=== PATIENT | female | born 1965 | race Hispanic/Latino ===

== ENCOUNTER → 2017-02-13 | Emergency (ER) | payer OTHER ==
[~2017-02-13] VITALS: Ht 154.9 cm; Wt 63.5 kg
[~2017-02-13] MED LIST: ANAPROX DS550 MG PO; FLEXERIL10 MG PO; GLIPIZIDE XL5 MG PO; JANUVIA25 MG; LISINOPRIL10 MG PO; LYRICA75 MG PO; METFORMIN HCL500 MG PO; RANITIDINE HCL150 MG PO; ROBAXIN-750750 MG PO
== END | disposition home or self-care (01) ==
LOC: ED 21:20
DX: S39.012A Strain of muscle, fascia and tendon of lower back, initial encounter (principal); E11.9 Type 2 diabetes mellitus without complications; Z90.49 Acquired absence of other specified parts of digestive tract; Z88.5 Allergy status to narcotic agent; Z79.84 Long term (current) use of oral hypoglycemic drugs; X58.XXXA Exposure to other specified factors, initial encounter
CPT/HCPCS: 80053; 81001; 85025; 96361; 96374; 99283; J2405; J7030

== ENCOUNTER 2017-04-01 16:09 | Emergency (ER) | payer OTHER ==
[~2017-04-01] VITALS: Ht 154.9 cm; Wt 63.5 kg
[~2017-04-01 16:09] MED LIST changes: -JANUVIA25 MG
[2017-04-01] MEDS ORDERED: JANUVIA25 MG (17:42)
== END 2017-04-01 21:26 | disposition home or self-care (01) ==
LOC: ED 16:09
DX: E11.65 Type 2 diabetes mellitus with hyperglycemia (principal); Z88.5 Allergy status to narcotic agent; Z79.84 Long term (current) use of oral hypoglycemic drugs
CPT/HCPCS: 71046; 80053; 81001; 84484; 85025; 96360; 99283; J7030

== ENCOUNTER 2017-08-25 21:11 | Emergency (ER) | payer OTHER ==
[~2017-08-25] VITALS: Ht 154.9 cm; Wt 63.5 kg
[~2017-08-25 21:11] MED LIST changes: +JANUVIA25 MG
[2017-08-25] MEDS ORDERED: LISINOPRIL5 MG PO (21:27)
[2017-08-25] MEDS ORDERED: OMEPRAZOLE20 MG PO (21:30)
[2017-08-25] MEDS ORDERED: LANTUS100 UNITS/ SUB-Q (21:32)
--- NOTE | 2017-08-28 08:47 | EKG ---
[facility] [address] [facility] [place], [place] [address] Signed Normal sinus rhythm Left anterior fascicular block Abnormal ECG No previous ECGs available Confirmed by PAVEL WATERMAN MD ([id number]) on 08/28/2017 8:47:43 AM Electronically Signed By: PAVEL WATERMAN MD 08/28/17 0847 PATIENT NAME: ROSY STRANGEJORDEN Electrocardiogram DATE OF : 63 PHYSICIAN: PAVEL WATERMAN MD REPORT #: [id number] REPORT IS CONFIDENTIAL AND NOT TO BE RELEASED WITHOUT AUTHORIZATION
== END 2017-08-26 00:06 | disposition home or self-care (01) ==
LOC: ED 21:11
DX: R07.9 Chest pain, unspecified (principal); E11.9 Type 2 diabetes mellitus without complications; Z79.4 Long term (current) use of insulin; Z79.899 Other long term (current) drug therapy
CPT/HCPCS: 71045; 80053; 84484; 85025; 93005; 93010; 96374; 99284; J1885

== ENCOUNTER 2018-03-30 18:16 | Emergency (ER) | payer OTHER ==
[~2018-03-30] VITALS: Ht 154.9 cm; Wt 63.5 kg
[~2018-03-30 18:16] MED LIST changes: +LANTUS100 UNITS/ SUB-Q; +LISINOPRIL5 MG PO; +OMEPRAZOLE20 MG PO
== END 2018-03-30 21:09 | disposition home or self-care (01) ==
LOC: ED 18:16
DX: R10.11 Right upper quadrant pain (principal); R10.13 Epigastric pain; G89.29 Other chronic pain; E11.9 Type 2 diabetes mellitus without complications; K21.9 Gastro-esophageal reflux disease without esophagitis; Z88.5 Allergy status to narcotic agent; Z79.4 Long term (current) use of insulin; Z79.899 Other long term (current) drug therapy
CPT/HCPCS: 76705; 80053; 81001; 82010; 83690; 85025; 96361; 96374; 96375; 99284-25; J1170; J2405; J7030

== ENCOUNTER → 2018-11-09 | Emergency (ER) | payer OTHER ==
[~2018-11-09] VITALS: Ht 154.9 cm; Wt 63.5 kg
[~2018-11-09] MED LIST changes: +BASAGLAR K100 UNIT/1 SUB-Q; +GABAPENTIN100 MG PO
== END ==
LOC: ED 21:34
DX: F41.9 Anxiety disorder, unspecified (principal); G25.81 Restless legs syndrome; E11.9 Type 2 diabetes mellitus without complications; I10 Essential (primary) hypertension; Z88.5 Allergy status to narcotic agent; Z79.4 Long term (current) use of insulin; Z79.899 Other long term (current) drug therapy
CPT/HCPCS: 99283

== ENCOUNTER 2019-05-03 18:23 | Emergency (ER) | payer OTHER ==
[~2019-05-03] VITALS: Ht 160 cm; Wt 63.5 kg
--- OUTSIDE RECORDS SUMMARY | 2019-05-03 18:26 | XMS ---
PreManage Notification: JORDEN GALLEGOS Security Operations Intern Events No recent Security Events currently on file CRITERIA MET - PDMP CARE PROVIDERS Mireya Hema Community Health Worker 12/14/2018-Current [place] - PHONE: [phone] Susan Hall Nurse Practitioner: Family Current PRODUCT BUILDER PHONE: [phone] HANNAH EASON Primary Care Current PHONE: Unknown YUMI YOUNG Primary Care Current CEZARKE PHONE: Unknown Miriam has no Care Guidelines for this patient. Oscar VISIT COUNT (12 MO.) 4 [facility] 2 JOY Muñoz TOTAL 6 NOTE: Visits indicate total known visits. ED/UCC VISIT TRACKING (12 MO.) 05/03/2019 18:24 [facility] TYPE: Emergency COMPLAINT: - BODY ACHES 12/13/2018 21:07 [facility] [place] TYPE: Emergency DIAGNOSES: - LOWER BACK PAIN - Low back pain 11/09/2018 21:34 [facility] [place] TYPE: Emergency COMPLAINT: - ANXIETY DIAGNOSES: - Allergy status to narcotic agent status - Other ch[facility] (current) drug therapy - Anxiety disorder, unspecified - 1 Type 2 diabetes mellitus without complications - Restless legs syndrome - intermediate frame tender (current) use of insulin - Essential (primary) hypertension 10/09/2018 00:47 [facility] [place] TYPE: Emergency DIAGNOSES: - Pain in right leg - R LEG PAIN 07/12/2018 20:49 [facility] [place] TYPE: Emergency DIAGNOSES: - ANKLE/LEG PAIN - Strain of unsp msl/tnd at ank/ft level, left foot, init 06/17/2018 23:29 [facility] [place] TYPE: Emergency DIAGNOSES: - Other chest pain - CHEST PAIN INPATIENT VISIT TRACKING (12 MO.) No inpatient visits to display in this time frame [id number]
[2019-05-03] MEDS ORDERED: CYCLOBENZAPRINE10 MG PO (23:03)
[2019-05-03] MEDS ORDERED: DICLOFENAC SODI75 MG PO (23:03)
== END 2019-05-03 23:11 | disposition home or self-care (01) ==
LOC: ED 18:23
DX: R10.9 Unspecified abdominal pain (principal); E11.9 Type 2 diabetes mellitus without complications; K21.9 Gastro-esophageal reflux disease without esophagitis; I10 Essential (primary) hypertension; Z88.5 Allergy status to narcotic agent; Z79.899 Other long term (current) drug therapy; Z79.84 Long term (current) use of oral hypoglycemic drugs
CPT/HCPCS: 74177; 80053; 81001; 83690; 85025; 96361; 99284-25; J1885; J2405; J7030; Q9967

== ENCOUNTER 2019-09-22 00:05 | Emergency (ER) | payer OTHER ==
[~2019-09-22] VITALS: Ht 160 cm; Wt 63.5 kg
[~2019-09-22 00:05] MED LIST changes: +CYCLOBENZAPRINE10 MG PO; +DICLOFENAC SODI75 MG PO
[2019-09-22] MEDS ORDERED: PROTONIX40 MG PO (02:55)
== END 2019-09-22 03:10 | disposition home or self-care (01) ==
LOC: ED 00:05
DX: R10.12 Left upper quadrant pain (principal); E11.9 Type 2 diabetes mellitus without complications; K21.9 Gastro-esophageal reflux disease without esophagitis; I10 Essential (primary) hypertension; Z88.5 Allergy status to narcotic agent; Z79.899 Other long term (current) drug therapy
CPT/HCPCS: 74177; 80053; 81001; 83690; 85025; 96375; 99284-25; J1170; J2405; J7030; Q9967

== ENCOUNTER 2020-09-04 23:37 | Emergency (ER) | payer OTHER ==
[~2020-09-04] VITALS: Ht 160 cm; Wt 63.5 kg
[~2020-09-04 23:37] MED LIST changes: +PROTONIX40 MG PO
--- OUTSIDE RECORDS SUMMARY | 2020-09-04 23:40 | XMS ---
PreManage Notification: JORDEN SCHULTZ Security Supervisory Historian Events No recent Security Events currently on file CRITERIA MET - [facility] - 2 Visits in 30 Days CARE PROVIDERS Hema Gomes Community Health Worker 12/14/2018-Jewell Richardsa - PHONE: [phone] Susan Hall Nurse Practitioner: Family Current [facility] PHONE: [phone] Miriam has no Care Guidelines for this patient. EStephen VISIT COUNT (12 MO.) [address] [place] [address] TOTAL 6 NOTE: Visits indicate total known visits. ED/UCC VISIT TRACKING (12 MO.) 09/04/2020 23:38 [facility] TYPE: Emergency COMPLAINT: - ABDOM PAIN, VOMITING, LIGHTHEADED 09/04/2020 22:47 [facility] [place] TYPE: Emergency COMPLAINT: - STOMACH PAIN DIAGNOSES: - STOMACH PAIN 04/23/2020 00:09 [facility] [place] TYPE: Emergency DIAGNOSES: - Gastro-esophageal reflux disease without esophagitis - +COVID; ABD PAIN AND FEVER 12/21/2019 21:28 [facility] TYPE: Emergency DIAGNOSES: - Pain, unspecified - Abdominal Pain - Generalized Body Aches 11/24/2019 06:16 [facility] [place] TYPE: Emergency DIAGNOSES: - Left upper quadrant pain - Pain in left leg - Left side pain - Left side pain, chest pain - Pain in left arm 09/22/2019 00:06 [facility] TYPE: Emergency COMPLAINT: - ABDOMINAL PAIN DIAGNOSES: - Left upper quadrant pain - Left upper quadrant pain - Allergy status to narcotic agent - Other equipment operator intermodal yard (current) drug therapy - Essential (primary) hypertension - Type 2 diabetes mellitus without complications - Gastro-esophageal reflux disease without esophagitis INPATIENT VISIT TRACKING (12 MO.) No inpatient visits to display in this time frame [id number]
[2020-09-05] MEDS ORDERED: ONDANSETRON ODT8 MG PO (02:14)
[2020-09-05] MEDS ORDERED: PROTONIX40 MG PO (02:14)
== END 2020-09-05 02:29 | disposition home or self-care (01) ==
LOC: ED 23:37
DX: K30 Functional dyspepsia (principal); D50.9 Iron deficiency anemia, unspecified; E11.9 Type 2 diabetes mellitus without complications; K21.9 Gastro-esophageal reflux disease without esophagitis; I10 Essential (primary) hypertension; Z88.5 Allergy status to narcotic agent; Z79.899 Other long term (current) drug therapy; Z79.4 Long term (current) use of insulin
CPT/HCPCS: 74177; 80053; 81001; 83690; 85025; 96361; 96375; 96376; 99284-25; C9113; J1170; J2405; J7030; Q9967

== ENCOUNTER 2021-11-03 18:55 | Emergency (ER) | payer OTHER ==
[~2021-11-03] VITALS: Ht 160 cm; Wt 73.5 kg
[~2021-11-03 18:55] MED LIST changes: +CETIRIZINE HCL10 MG PO; +GABAPENTIN300 MG PO; +METOPROLOL SUCC25 MG PO; +ONDANSETRON ODT8 MG PO; +PANTOPRAZOLE SO40 MG PO
--- OUTSIDE RECORDS SUMMARY | 2021-11-03 18:58 | XMS ---
PreManage Notification: JORDEN SCHULTZ Security Health Assessment And Treatment Teacher Events No recent Security Events currently on file CRITERIA MET - PDMP CARE PROVIDERS Mireya Hema Community Health Worker 12/14/2018-Current [place] - PHONE: [phone] PEPE CLARK LISS Internet Database Specialist/Superintendent Operations Division Current PHONE: [phone] ASHLEY ELIZONDO Internal Medicine 09/05/2020-Current PHONE: [phone] Susan Hall Nurse Practitioner: Family Current ROENTGENOLOGY TEACHER PHONE: Unknown Miriam has no Care Guidelines for this patient. Oscar VISIT COUNT (12 MO.) 2 JOY Muñoz TOTAL 2 NOTE: Visits indicate total known visits. ED/UCC VISIT TRACKING (12 MO.) 11/03/2021 18:56 [facility] TYPE: Emergency COMPLAINT: - BODY ACHES AND RASH 07/31/2021 09:52 [facility] TYPE: Emergency COMPLAINT: - ABD PAIN DIAGNOSES: - Allergy status to narcotic agent - Malignant neoplasm of unspecified site of left female breast - Malignant neoplasm of unspecified site of unspecified female breast - Essential (primary) hypertension - Type 2 diabetes mellitus without complications - Other penitentiary (current) drug therapy - Duodenitis without bleeding - Upper abdominal pain, unspecified INPATIENT VISIT TRACKING (12 MO.) No inpatient visits to display in this time frame [id number]
[2021-11-03] MEDS ORDERED: CLINDAMYCIN PHO60 ML TOP (19:58)
[2021-11-03] MEDS ORDERED: CELECOXIB100 MG PO (19:58)
== END 2021-11-04 08:00 | disposition home or self-care (01) ==
LOC: ED 18:55
DX: D69.6 Thrombocytopenia, unspecified (principal); R21 Rash and other nonspecific skin eruption; Z85.3 Personal history of malignant neoplasm of breast; Z90.12 Acquired absence of left breast and nipple; Z51.11 Encounter for antineoplastic chemotherapy; Z88.5 Allergy status to narcotic agent
CPT/HCPCS: 36415; 71045; 80053; 81001; 83605; 85025; 85060; 85610; 85730; 86850; 86900; 86901; 87502; 96374; 96375; 99283-25; A9270; C9803; J1200; J2930; P9035; U0003

== ENCOUNTER 2022-01-12 07:37 | Emergency (ER) | payer OTHER ==
[~2022-01-12] VITALS: Ht 160 cm; Wt 73.5 kg
[~2022-01-12 07:37] MED LIST changes: +CELECOXIB100 MG PO; +CLINDAMYCIN PHO60 ML TOP
--- OUTSIDE RECORDS SUMMARY | 2022-01-12 07:38 | XMS ---
PreManage Notification: JORDEN SCHULTZ Security Acid Tester Events No recent Security Events currently on file CRITERIA MET - PDMP CARE PROVIDERS Mireya Hema Community Health Worker 12/14/2018-Current [place] - PHONE: [phone] PEPE CLARK LISS Electrical Control Assembler/Paper Core Machine Operator Current PHONE: [phone] ASHLEY ELIZONDO Internal Medicine 09/05/2020-Current PHONE: [phone] Susan Hall Nurse Practitioner: Family Current DIRECTOR OF COMMUNICATIONS PHONE: Unknown Miriam has no Care Guidelines for this patient. Oscar VISIT COUNT (12 MO.) 3 JOY Muñoz TOTAL 3 NOTE: Visits indicate total known visits. ED/UCC VISIT TRACKING (12 MO.) 01/12/2022 07:37 [facility] TYPE: Emergency COMPLAINT: - BACK PAIN, CONSTIPATION 11/03/2021 18:56 [facility] TYPE: Emergency COMPLAINT: - BODY ACHES AND RASH DIAGNOSES: - Thrombocytopenia, unspecified - Contact with and (suspected) exposure to COVID-19 - Rash and other nonspecific skin eruption - Allergy status to narcotic agent - Encounter for antineoplastic chemotherapy - Acquired absence of left breast and nipple - Personal history of malignant neoplasm of breast 07/31/2021 09:52 [facility] [place] TYPE: Emergency COMPLAINT: - ABD PAIN DIAGNOSES: - Malignant neoplasm of unspecified site of unspecified female breast - Essential (primary) hypertension - Type 2 diabetes mellitus without complications - Other halfway (current) drug therapy - Duodenitis without bleeding - Upper abdominal pain, unspecified - Allergy status to narcotic agent - Malignant neoplasm of unspecified site of left female breast INPATIENT VISIT TRACKING (12 MO.) No inpatient visits to display in this time frame [id number]
[2022-01-12] MEDS ORDERED: ONDANSETRON ODT8 MG PO (09:43)
== END 2022-01-12 09:55 | disposition home or self-care (01) ==
LOC: ED 07:37
DX: R10.9 Unspecified abdominal pain (principal); E11.9 Type 2 diabetes mellitus without complications; K21.9 Gastro-esophageal reflux disease without esophagitis; I10 Essential (primary) hypertension; Z85.3 Personal history of malignant neoplasm of breast; Z88.5 Allergy status to narcotic agent; Z79.899 Other long term (current) drug therapy; Z79.4 Long term (current) use of insulin
CPT/HCPCS: 36415; 74177; 80053; 81001; 83690; 85025; 85060; 96374; 96375; 99284-25; J2405; J3010; J7030; Q9967